=== PATIENT | female | born 1990 | race Caucasian/White ===

== ENCOUNTER → 2017-09-04 14:02 | Outpatient (CLI) | payer BC, SELFPAY ==
[2017-09-04 15:23] LABS: Absolute Lymphocyte Count 2.93 X10^3/ul (0.83-4.51); Absolute Neutrophil Count 11.2 X10^3/uL (2.0-7.7); Basophil# 0.02 X10^3/uL; Basophil% 0.1 % (0-1); Eosinophil# 0.04 X10^3/uL; Eosinophils% 0.3 % (0-5); Hematocrit 34.7 % (37-47); Hemoglobin 11.2 g/dl (12.0-15.0); Lymphocyte # 2.93 X10^3/ul (4.0); Lymphocyte % 19.4 % (19-41); Mean Corp Hgb Conc 32.3 g/gl (32-36); Mean Corpuscular Hgb 27.5 pg (27.0-32.0); Mean Corpuscular Volume 85.3 fL (81-99); Mean Platelet Vol. 10.3 fl (6.2-12.0); Monocyte# 0.76 X10^3/uL; Neutrophil # 11.23 X10^3/uL (2.7-7.7); Neutrophil % 74.6 % (47-70); Platelet Count 301 K/mm3 (150-450); RBC Distribution Width CV 13.8 % (11.6-14.6); RBC Distribution Width SD 42.3 fl (35.1-43.9); Red Blood Count 4.07 M/mm3 (4.2-5.4); White Blood Count 15.1 K/mm3 (4.4-11.0)
[2017-09-04 15:33] LABS: POSITIVE COUNT NO; POSITIVE DIFFERENTIAL NO; POSITIVE MORPHOLOGY NO
[2017-09-04 15:48] LABS: Glucose Challenge Gest 1H 50g 110 mg/dL (70-140)
[2017-09-08 02:58] LABS: Rapid Plasmin Reagin (RPR) NONREACTIVE (NONREACTIVE)
== END ==
PROVIDERS: Nurse Practitioner Women's Health; Visit Provider Obstetrics & Gynecology
DX: Z34.82 Encounter for supervision of other normal pregnancy, second trimester (principal); Z3A.00 Weeks of gestation of pregnancy not specified
CPT/HCPCS: 36415; 82950; 85025; 86592

== ENCOUNTER → 2017-09-20 13:45 | Outpatient (CLI) | payer BC, SELFPAY ==
[2017-09-20 14:46] LABS: Glucose Challenge Gest 1H 50g 126 mg/dL (70-140)
== END ==
PROVIDERS: Visit Provider Obstetrics & Gynecology
DX: Z34.82 Encounter for supervision of other normal pregnancy, second trimester (principal)
CPT/HCPCS: 36415; 82950

== ENCOUNTER → 2017-11-01 14:07 | Outpatient (CLI) | payer BC, SELFPAY ==
[2017-11-01 15:39] LABS: Group B Strep DNA By PCR Negative (Negative); Internal Control PASS; Probe Check PASS; Specimen Processing Control PASS
== END ==
PROVIDERS: Visit Provider Obstetrics & Gynecology
DX: Z34.82 Encounter for supervision of other normal pregnancy, second trimester (principal)
CPT/HCPCS: 87081; 87653

== ENCOUNTER → 2017-11-22 15:04 | Outpatient (CLI) | payer BC, SELFPAY ==
[2017-11-22 15:28] LABS: ROM Internal Control Test YES-OK TO RESULT pt. (Internal QC)
[2017-11-22 15:37] LABS: ROM Patient Test POSITIVE (Negative)
== END ==
PROVIDERS: Visit Provider Nurse Practitioner Women's Health
DX: O42.90 Premature rupture of membranes, unspecified as to length of time between rupture and onset of labor, unspecified weeks of gestation (principal); Z3A.00 Weeks of gestation of pregnancy not specified
CPT/HCPCS: 84112

== ENCOUNTER 2017-11-22 15:55 | Inpatient (IN) | payer BC, SELFPAY ==
[2017-11-22 16:16] VITALS: BMI 35.6
--- NOTE | 2017-11-22 16:48 | NURSING ---
hasnt smoked for over 5 yrs
[2017-11-22] MEDS: Lactated Ringers 1,000 ML 50 ML IV ×2 (16:50→20:55)
[2017-11-22 17:10] LABS: Hematocrit 36.4 % (37-47); Hemoglobin 11.8 g/dl (12.0-15.0); Mean Corp Hgb Conc 32.4 g/gl (32-36); Mean Corpuscular Hgb 26.9 pg (27.0-32.0); Mean Corpuscular Volume 83.1 fL (81-99); Mean Platelet Vol. 9.9 fl (6.2-12.0); Platelet Count 295 K/mm3 (150-450); RBC Distribution Width CV 14.3 % (11.6-14.6); RBC Distribution Width SD 43.7 fl (35.1-43.9); Red Blood Count 4.38 M/mm3 (4.2-5.4)
[2017-11-22 17:36] LABS: Scan Indicated on CBC? Y/N NO
[2017-11-22] MEDS: Oxytocin 30 units/NS 500 ml 30 UNITS/500 ML IV.SOLN IV (18:29)
[2017-11-22] MEDS: fentaNYL-bupivacaine (epidural) 100 ML BAG EPIDURAL (21:46)
[2017-11-23] MEDS: Oxytocin 30 units/NS 500 ml 30 UNITS/500 ML IV.SOLN 334 UNITS IV (01:40)
--- NOTE | 2017-11-23 02:07 | PCM.HP.OB ---
- Problem List (1) PROM (premature rupture of membranes) Status: Acute (2) Supervision of normal Status: Acute Qualifiers: Comment: PRR RACHAEL: 11/24/17; girl Spouse: Festus, PC: Jose History Date of Admission: 11/22/17 Final RACHAEL: 11/24/17 Gestational age: 39 Weeks and 6 Days History of this : This is a 27 year-old, G 3, P 1, at 39 weeks gestational age. presented PROM clear fluid. irregular ctx Allergies No Known Allergies Allergy (Verified 11/15/17 11:31) Home Medications: Home Medications vitamin,calcium,oynjmdlh-hrpw-jvpwg acid tablet 1 tab PO QDAY 06/14/17 Smoking Status: Former smoker Alcohol: None Number of Fetus(es): 1 Heart Tracing: FHT 160-180 min-mod variability reactive no decels cat II tracing upon admission, then cat I baseline 150-160 TOCO Analysis: q 5-10 History - Labs Labs: Mom's Labs & Results 11/22/17 11/22/17 16:35 16:35 WBC 14.0 H RBC 4.38 Hgb 11.8 L Hct 36.4 L MCV 83.1 MCH 26.9 L MCHC 32.4 RDW 14.3 RDW Differential 43.7 Plt Count 295 MPV 9.9 Blood Type A POSITIVE Antibody Screen NEGATIVE Course Did the patient receive Yes care? Labs Blood Type: A RH: POSITIVE RPR/VDRL/Syphilis Nonreactive Rubella status Immune HbSAg Negative Date Done: 05/22/17 Chlamydia Negative Gonorrhea Negative HIV/AIDS Non-Reactive Group B Strep: Negative Current Obstetrical History Gestational Diabetes No Incompetent Cervix No Infertility No IUGR No Macrosomia No Hypertension/Pre-eclampsia No Placenta Previa/Abruption No PTL/PROM No Uterine anomaly No Oligohydramnios No Polyhydramnios No Multiple gestation No Past Medical History Asthma No Diabetes No Hypertension No Heart disease No Mitral valve prolapse No Neurologic/Seizure disorder/ No Migraines Kidney disease No Liver disease No Varicosities No Clotting disorders/Hx of DVT No Thyroid Dysfunction No Other medical diseases No Psychiatric disorders No Major trauma No Abnormal PAP smear No Sleep apnea No Mammogram in the last 2 years Yes Social History Marital Status: Alleged father Festus Wright Hx Smoking No Smoking Status Former smoker How long have you used none substances (years)? What date/time did you last no use any of the above? - Delivery Expected Infant Delivery Method: Spontaneous Vaginal Review of Systems Constitutional: Denies: Chills, Fever, Weight Change HEENT: Denies: Head Aches, Sinus Congestion, Sinus Drainage Cardiovascular: Denies: Chest Pain, Palpitations Respiratory: Denies: Cough, Shortness of breath at rest, Sputum production Gastrointestinal: Denies: Abdominal Pain, Nausea, Vomiting Genitourinary: Denies: Dysuria Gynecological: Reports: Vaginal discharge Musculoskeletal: Denies: Joint Pain, Joint Tenderness Skin: Denies: Rash, Wounds Neurological: Denies: Numbness, Tingling, Focal weakness Psychiatric: Denies: Anxiety, Depression Hematologic/ Lymphatic: Denies: Easy Bruising, Easy Bleeding Physical Exam General: Alert, Oriented x3, No apparent distress Cardiovascular: Regular rate Lungs: Normal air movement Abdomen: Soft, Non Tender, Gravid Extremities:: No clubbing Estimated gestational size: Appropriate for gestational size Presentation: Cephalic Cervix Dilation (cm): 3 Station: -1 Effacement (%): 60 Assessment/Plan All Active Problems (Last Reviewed 11/22/17 @ 14:36 by Eleanor Palacios) PROM (premature rupture of membranes) (Acute) Supervision of normal (Acute) 27 yo @ 39 weeks presents with PROM pit per protocol gbs neg monitor for signs of chorio- none at present so no antibiotics indicated epi PRN
[2017-11-23] MEDS: Oxytocin 30 units/NS 500 ml 30 UNITS/500 ML IV.SOLN 167 UNITS IV (02:10)
--- NOTE | 2017-11-23 02:19 | PCM.OB.VAG ---
- Problem List (1) PROM (premature rupture of membranes) Status: Acute (2) Supervision of normal Status: Acute Qualifiers: Comment: PRR RACHAEL: 11/24/17; girl Spouse: Festus PC: Jose Vaginal Delivery Maternal Presentation: Spontaneous Rupture of Membranes 27 yo @ 39 weeks presents prom Method of Induction: Pitocin Medical Reason for Induction: Premature Rupture of Membranes Amniotic Membrane Rupture Type: Spontaneous at home Amniotic Fluid Description: Clear Final RACHAEL: 11/24/17 Gestational age: 39 Weeks and 6 Days Date of Procedure: 11/23/17 Pre-Operative Diagnosis: prom Post-Operative Diagnosis: same Surgery/ Procedure Performed: Spontaneous Vaginal Delivery Type of Anesthesia: Epidural Description of Procedure: Patient began pushing and delivered the head in the RELL presentation. The head was delivered atraumatically . The anterior and posterior shoulders delivered without complication followed by the rest of the infant and the infant was placed on the maternal abdomen. Delayed cord clamping was employed for approximately 60 seconds. Cord was clamped and cut and gentle traction was applied to the cord and the placenta delivered spontaneously immediately following it was noted to be intact with three-vessel cord. The perineum and vagina were inspected and noted to have a first-degree perineal laceration that was repaired in the usual fashion. EBL was 300 cc. Patient and tolerated delivery well. Presentation: RELL Placental Delivery Description: Spontaneous Placenta Disposition: [facility] Cord Vessel Description: 3 Vessels Cord Entanglement: None Estimated Blood Loss: 300 A gender: Female Episiotomy Description: None Laceration: Perineal Extension/lac, 1st degree Medications given after delivery: IV Pitocin Complications: None
[2017-11-23] MEDS: Naproxen 250 MG Tablet PO ×2 (08:59→19:48)
[2017-11-23] MEDS: Prenatal Vits Tablet 1 TABLET PO (08:59)
[2017-11-23 09:00] VITALS: BP 115/67; PULSE 91; RESP 18; TEMP 36.3; O2SAT 97
[2017-11-23 12:00] VITALS: BP 110/69; PULSE 90; RESP 18; TEMP 36.1
[2017-11-23 16:00] VITALS: BP 110/69; PULSE 80; RESP 18; TEMP 36.7
[2017-11-23 20:00] VITALS: BP 113/79; PULSE 88; RESP 18; TEMP 36.3
[2017-11-24 00:32] VITALS: BP 100/50; PULSE 70; RESP 18; TEMP 36.3
[2017-11-24 04:00] VITALS: BP 104/53; PULSE 80; RESP 18; TEMP 36.3
--- NOTE | 2017-11-24 07:12 | DCINST_ITS ---
Discharge Diet: No Restrictions Discharge Activity: Return to Normal Activity, May not drive while taking narcotic pain medications., May Shower May resume sexual activity in: 4-6 weeks Call your doctor if your incision/area has: Continuous Slow Oozing, Sudden Increased Bleeding, Increased Pain/ Swelling, Increased Redness, Foul Smelling Discharge Additional Instructions: If you experience any of the following, contact your healthcare provider. * Bleeding that soaks a pad every hour for 2 hours * Fever 100.4 or higher * Unrelieved incision or abdominal pain * Swelling, redness, discharge or bleeding from your incision or episiotomy site * Your incision begins to separate * Problems urinating (including inability to urinate or burning while urinating) . * Visual changes * Severe headache * Flu-like symptoms * Pain or redness in one of both of your breasts * Pain, warmth, tenderness or swelling in your legs, especially the calf area * Frequent nausea and vomiting * Symptoms of depression or anxiety If you experience any of the following, call 911 or go to the nearest Emergency Room. * Chest pain * Problems breathing * Seizure activity * Partial or complete paralysis of a body part, slurred speech, weakness or drooping of the face, or a sudden inability to walk or hold your balance Allergies/Adverse Reactions: Allergies No Known Allergies Allergy (Verified 11/15/17 11:31) Medications to take at Discharge vitamin,calcium,ndtjiuxs-snap-vwdis acid tablet 1 tab PO QDAY 06/14/17 Naproxen [Naprosyn] 250 - 500 mg PO Q8H PRN PRN #30 tab 11/24/17 The following prescriptions were given: Naproxen [Naprosyn] 250 - 500 mg PO Q8H PRN PRN #30 tab PRN Reason: MILD PAIN Please Follow Up With: Sachi Steward MD - [phone] When: Call to make an appointment with your doctor in 6 weeks. If you had elevated Blood pressure or 4th degree laceration you will need to be seen in 2 weeks. Primary Care Physician: Care Physician,No Primary [Primary Care Provider] -
--- NOTE | 2017-11-24 07:12 | PCM.DCVAG ---
Discharge Diet: No Restrictions Discharge Activity: Return to Normal Activity, May not drive while taking narcotic pain medications., May Shower May resume sexual activity in: 4-6 weeks Call your doctor if your incision/area has: Continuous Slow Oozing, Sudden Increased Bleeding, Increased Pain/ Swelling, Increased Redness, Foul Smelling Discharge Additional Instructions: If you experience any of the following, contact your healthcare provider. Bleeding that soaks a pad every hour for 2 hours Fever 100.4 or higher Unrelieved incision or abdominal pain Swelling, redness, discharge or bleeding from your incision or episiotomy site Your incision begins to separate Problems urinating (including inability to urinate or burning while urinating). Visual changes Severe headache Flu-like symptoms Pain or redness in one of both of your breasts Pain, warmth, tenderness or swelling in your legs, especially the calf area Frequent nausea and vomiting Symptoms of depression or anxiety If you experience any of the following, call 911 or go to the nearest Emergency Room. Chest pain Problems breathing Seizure activity Partial or complete paralysis of a body part, slurred speech, weakness or drooping of the face, or a sudden inability to walk or hold your balance Allergies/Adverse Reactions: Allergies No Known Allergies Allergy (Verified 11/15/17 11:31) Medications to take at Discharge vitamin,calcium,vnfdfgnr-cjxl-gimbq acid tablet 1 tab PO QDAY 06/14/17 Naproxen [Naprosyn] 250 - 500 mg PO Q8H PRN PRN #30 tab 11/24/17 The following prescriptions were given: Naproxen [Naprosyn] 250 - 500 mg PO Q8H PRN PRN #30 tab PRN Reason: MILD PAIN Please Follow Up With: Sachi Steward MD - [phone] When: Call to make an appointment with your doctor in 6 weeks. If you had elevated Blood pressure or 4th degree laceration you will need to be seen in 2 weeks. Primary Care Physician: Care Physician,No Primary [Primary Care Provider] -
[2017-11-24 08:00] VITALS: BP 95/56; PULSE 79; RESP 16; TEMP 36.3
[2017-11-24] MEDS: Senna/Docusate Sodium 1 Tablet PO (08:56)
[2017-11-24] MEDS: Naproxen 250 MG Tablet PO (08:56)
--- NOTE | 2017-11-24 09:42 | NURSING ---
0900 discharge talk done pt verbalizes understanding; pt denies need for any further infant or maternal care teaching;
--- NOTE | 2017-11-24 10:12 | PN.OBGYN_ITS ---
Patient Problems: Active and Suspected Problems (Last Updated 11/23/17 @ 02:17 by Sachi Steward MD) PROM (premature rupture of membranes) (Acute) Subjective: doing well no complaints - Physical Exam General: Alert, Oriented x3 Vital Signs Temp Pulse Resp BP Pulse Ox 97.3 F L 79 16 95/56 L 97 11/24/17 08:00 11/24/17 08:00 11/24/17 08:00 11/24/17 08:00 11/23/17 09:00 Oxygen Delivery Method Room Air Weight: 189 lb Body Mass Index (BMI) 35.6 Intake and Output for Last 24 Hours 11/22/17 11/23/17 11/24/17 23:59 23:59 23:59 Intake Total 2600 / 2600 Output Total 650 / 650 Balance 1950 / 1950 Medical Necessity - Tobacco Use Smoking Status: Former smoker Assessment/Plan All Active Problems (Last Updated 11/23/17 @ 02:17 by Sachi Steward MD) Supervision of normal (Acute) PROM (premature rupture of membranes) (Acute) s/p routine care [facility]
== END 2017-11-24 09:25 | disposition home health service (06) | DRG 775 ==
PROVIDERS: Admitting Provider Obstetrics & Gynecology; Visit Provider Obstetrics & Gynecology
DX: O42.02 Full-term premature rupture of membranes, onset of labor within 24 hours of rupture (principal); O70.0 First degree perineal laceration during delivery; Z3A.39 39 weeks gestation of pregnancy; Z37.0 Single live birth; Z87.891 Personal history of nicotine dependence
CPT/HCPCS: 59025; 59050; 85027; 86850; 86900; 99218; J7120; G0378

== ENCOUNTER → 2020-07-06 | Outpatient (CLI) | payer BC, SELFPAY ==
[2020-07-06 13:59] VITALS: BMI 32.9
[2020-07-10 08:19] LABS: HPV APTIMA, High Risk Negative (Negative)
== END | disposition home or self-care (01) ==
LOC: LABSPEC 17:13
PROVIDERS: Visit Provider Nurse Practitioner Women's Health
DX: Z12.4 Encounter for screening for malignant neoplasm of cervix (principal)
CPT/HCPCS: 87624; 88175; G0145

== ENCOUNTER → 2024-12-17 | Outpatient (CLI) | payer BC, SELFPAY ==
[2024-12-20 12:08] LABS: HPV APTIMA, High Risk Negative (Negative)
== END | disposition home or self-care (01) ==
LOC: LABSPEC 11:09
PROVIDERS: Referring Provider Obstetrics & Gynecology; Visit Provider Obstetrics & Gynecology
DX: Z12.4 Encounter for screening for malignant neoplasm of cervix (principal)
CPT/HCPCS: 87624; 88175; G0145